=== PATIENT | female | born 1955 | race Two or more races ===

== ENCOUNTER → 2024-03-05 | Outpatient (CLI) | payer OTHER, MEDICAID, SELFPAY ==
--- NOTE | 2024-03-05 13:00 | XR_ITS ---
Examination: Screening digital mammography, bilateral Computer aided detection 3-D breast Tomosynthesis, bilateral Date and time of exam: March 05, 2024 1248 hours Compared to mammograms dating to April 20, 2009 Indication: Screening Technique: Nonmagnified MLO, CC views of the breasts to been obtained, reconstructed from 3-D Tomosynthesis images. R2 computer aided detection program utilized for evaluation of suspicious masses and/or abnormal calcifications. 3-D Tomosynthesis images obtained. Findings: Scattered areas of fibroglandular density. Benign calcifications. No interval suspicious masses Impression: BI-RADS category II: Benign Findings. Recommend 1 year follow-up mammogram.
--- NOTE | 2024-03-05 13:15 | XR_ITS ---
Examination: Bone densitometry Date and time of exam:March 05, 2024 1246 hours INDICATIONS: Hysterectomy age 40 postmenopausal wrist fracture 2020% history osteoporosis Technique: Lumbar spine and hip total bone mineralization values of an calculated. Peak reference and age match control results have been displayed. Findings: Lumbar spine total bone mineralization is0.693 gm/cm2. This is 3.2 standard deviations below peak reference. This is 1.1 standard deviations below age-matched controls. Hip total bone mineralization is 0.766 gm/cm2 This is 1.5 standard deviations below peak reference. This is 0.0 standard deviations at age-matched controls Impression: There is osteoporosis based on lumbar spine measurements. There is osteopenia based on hip measurements Lumbar mineralization is increased 3.3% compared with October 26, 2021 Hip mineralization is increased 2.9% compared with October 26, 2021
== END | disposition home or self-care (01) ==
PROVIDERS: PCP Internal Medicine; Referring Provider Internal Medicine; Visit Provider Internal Medicine
DX: Z12.31 Encounter for screening mammogram for malignant neoplasm of breast (principal); R92.323 Mammographic fibroglandular density, bilateral breasts; R92.1 Mammographic calcification found on diagnostic imaging of breast; M81.0 Age-related osteoporosis without current pathological fracture; M85.89 Other specified disorders of bone density and structure, multiple sites
CPT/HCPCS: 77063; 77067; 77080

== ENCOUNTER 2024-04-12 08:50 | Day surgery (SDC) | payer OTHER, MEDICAID, SELFPAY ==
[2024-04-12] VITALS (11 sets, daily range): BP systolic 110–161; BP diastolic 68–113; PULSE 71–88; RESP 15–23; TEMP 36.7–36.8; O2SAT 92–98
[2024-04-12] MEDS: MIDAZOLAM INJ 1 MG/ML VIAL 2 ML (ASD USE ONLY) 2 MG IV (10:53)
[2024-04-12] MEDS: fentaNYL CIT INJ 50 mCg/ML AMP 2ML (ASD USE ONLY) IV (10:53)
[2024-04-12] MEDS: DiphenhydrAMINE INJ 50 MG/ML VIAL 25 MG IV (10:53)
[2024-04-12] MEDS: ONDANSETRON INJ 2 MG/ML INJ 2 ML 4 MG IV (10:53)
== END 2024-04-12 11:35 | disposition home or self-care (01) ==
PROVIDERS: PCP Internal Medicine; Referring Provider Specialist; Visit Provider Specialist
PROC: (CPT 43239; principal; 2024-04-12 10:00)
DX: K20.90 Esophagitis, unspecified without bleeding (principal); K29.70 Gastritis, unspecified, without bleeding; K29.50 Unspecified chronic gastritis without bleeding; B96.81 Helicobacter pylori [H. pylori] as the cause of diseases classified elsewhere; K31.89 Other diseases of stomach and duodenum; K31.A0 Gastric intestinal metaplasia, unspecified; K44.9 Diaphragmatic hernia without obstruction or gangrene
CPT/HCPCS: 43239; A4649; J1200; J2250; J2405; J3010

== ENCOUNTER → 2024-05-02 | Outpatient (CLI) | payer OTHER, MEDICAID, SELFPAY ==
--- NOTE | 2024-05-02 09:18 | XR_ITS ---
Examination: Esophagram standard Fluoroscopy 24 spot fluoroscopic films of the esophagus Upright PA chest single view Soft tissue lateral neck single view Exam date and time: May 02, 2023 1107 hours INDICATIONS: Difficulty swallowing beginning several months ago TECHNIQUE AND FINDINGS: Upright PA chest single view demonstrates large retrocardiac gastric hernia Mild vascular congestion Soft tissue lateral neck single view shows mild disc narrowing C5-C6, C6-C7 Epiglottis does not appear thickened Patient swallowed thin barium with 24 spot fluoroscopic films of the esophagus obtained Severe esophageal dysmotility with numerous secondary and tertiary esophageal contractions No esophageal ulcerations Most of the stomach is present in the thorax Continuous gastroesophageal reflux No stricture at the gastroesophageal junction IMPRESSION: Severe esophageal dysmotility Continuous gastroesophageal reflux but no stricture the gastroesophageal junction
== END | disposition home or self-care (01) ==
LOC: CDIM 09:06
PROVIDERS: PCP Specialist; Referring Provider Specialist; Visit Provider Specialist
DX: K21.9 Gastro-esophageal reflux disease without esophagitis (principal); K22.89 Other specified disease of esophagus
CPT/HCPCS: 74220

== ENCOUNTER → 2024-07-24 | Outpatient (CLI) | payer OTHER, MEDICAID, SELFPAY ==
[2024-07-24 08:33] LABS: Basophils # (Auto) 0.1 Thou/mm3 (0.0-0.2); Basophils % (Auto) 1 % (0-2.5); Eosinophils # (Auto) 0.4 Thou/mm3 (0.0-0.5); Eosinophils % (Auto) 6 % (0-10); Hematocrit 41.8 % (36.0-46.0); Hemoglobin 13.8 g/dL (12.0-16.0); Immature Granulocytes % (Auto) 0 % (0-0); Immature Granulocytes Auto 0.02 Thou/mm3 (0.00-0.00); Lymphocytes # (Auto) 1.7 Thou/mm3 (1.0-4.8); Lymphocytes % (Auto) 27 % (10-50); Mean Corpuscular Hemoglobin 30.5 pg (25.0-35.0); Mean Corpuscular Volume 92 fL (80-100); Monocytes # (Auto) 0.7 Thou/mm3 (0.0-0.8); Monocytes % (Auto) 10 % (0-12); Neutrophils # (Auto) 3.5 Thou/mm3 (1.8-7.7); Neutrophils % (Auto) 56 % (37-80); Nucleated Red Blood Cell % 0 /100 WBC (0); Platelet Count 206 Thou/mm3 (140-440); RDW Standard Deviation 48.6 fL (36.4-46.3); Red Blood Count 4.53 Miln/mm3 (4.00-5.20); White Blood Count 6.2 Thou/mm3 (3.6-11.0)
[2024-07-24 08:42] LABS: Glucose Estimated Average 128 mg/dL (80-131); Hemoglobin A1C 6.1 % Hgb (4.8-6.0)
[2024-07-24 08:48] LABS: T4 (Thyroxine) 8.8 mcg/dL (4.5-10.9)
[2024-07-24 08:51] LABS: Alanine Aminotransferase 15 U/L (10-49); Albumin/Globulin Ratio 1.3 (1.2-2.2); Alkaline Phosphatase 99 U/L (46-116); Anion Gap 8 (7-16); Aspartate Amino Transferase 19 U/L (0-34); BUN/Creatinine Ratio 10 Ratio (12-20); Bilirubin,Total 0.7 mg/dL (0.3-1.2); Blood Urea Nitrogen 10 mg/dL (9-23); Calcium 9.2 mg/dL (8.3-10.6); Calcium (Corrected) 9.2 mg/dL (8.5-10.1); Carbon Dioxide 24.5 mMol/L (20.0-31.0); Cardiac Risk Estimate 4.4 RATIO (3.7-5.6); Chloride 114 mMol/L (98-107); Cholesterol 236 mg/dL (132-200); Globulin 3.2 gm/dL (2.3-3.5); Glucose 119 mg/dL (74-106); HDL Cholesterol 54 mg/dL (40-60); LDL Cholesterol,Calculated 148 mg/dL (0-130); Osmolality,Calculated 290 (275-295); Potassium 3.8 mMol/L (3.4-5.1); Sodium 146 mMol/L (136-145); Thyroid Stimulating Hormone 0.89 uIU/mL (0.55-4.78); Total Protein 7.2 gm/dL (5.7-8.2); Triglycerides 169 mg/dL (30-150); eGFR > 60 See Note
[2024-07-24 08:53] LABS: Folate 11.75 ng/mL (>5.38); Vitamin B12 315 pg/mL (211-911)
[2024-07-29 07:07] LABS: Homocysteine* 15.2 umol/L (<10.4); Methylmalonic Acid, GC/MS/MS* 174 nmol/L (69-390)
== END | disposition home or self-care (01) ==
LOC: COPL 07:08
PROVIDERS: PCP Family Medicine; Referring Provider Nurse Practitioner Family; Visit Provider Nurse Practitioner Family
DX: R53.83 Other fatigue (principal); D51.9 Vitamin B12 deficiency anemia, unspecified; E78.5 Hyperlipidemia, unspecified
CPT/HCPCS: 36415; 80053; 80061; 82607; 82746; 83036; 83090; 83921; 84436; 84443; 85025

== ENCOUNTER → 2024-08-01 | Outpatient (CLI) | payer OTHER, MEDICAID, SELFPAY ==
[2024-08-01 09:40] LABS: Urea Breath Test Negative (Negative)
== END | disposition home or self-care (01) ==
LOC: COPL 06:53
PROVIDERS: PCP Internal Medicine; Referring Provider Specialist; Visit Provider Specialist
DX: R10.10 Upper abdominal pain, unspecified (principal); B96.81 Helicobacter pylori [H. pylori] as the cause of diseases classified elsewhere
CPT/HCPCS: 83013; 83014

== ENCOUNTER → 2024-11-12 | Outpatient (CLI) | payer OTHER, MEDICAID, SELFPAY ==
[2024-11-12 08:49] LABS: Glucose Estimated Average 134 mg/dL (80-131); Hemoglobin A1C 6.3 % Hgb (4.8-6.0)
[2024-11-12 09:04] LABS: Cardiac Risk Estimate 3.2 RATIO (3.7-5.6); Cholesterol 181 mg/dL (132-200); HDL Cholesterol 56 mg/dL (40-60); LDL Cholesterol,Calculated 98 mg/dL (0-130); Triglycerides 135 mg/dL (30-150)
== END | disposition home or self-care (01) ==
LOC: COPL 07:27
PROVIDERS: PCP Nurse Practitioner Family; Referring Provider Nurse Practitioner Family; Visit Provider Nurse Practitioner Family
DX: E78.5 Hyperlipidemia, unspecified (principal); R73.03 Prediabetes
CPT/HCPCS: 36415; 80061; 83036